=== PATIENT | male | born 1990 | race Caucasian/White ===

== ENCOUNTER 2021-11-09 11:55 | Emergency (ER) | payer MEDICAID ==
[~2021-11-09] VITALS: Ht 182.9 cm; Wt 81.8 kg
[2021-11-09 12:17] VITALS: BP 121/94
[2021-11-09] MEDS ORDERED: TETanus/Pertussis (Acell)/Diphther VAC/PF (Tdap-Adult) 0.5ml syringe IMVAC ONE (12:30)
== END 2021-11-09 13:23 | disposition left against medical advice (07) ==
LOC: ER 11:57
DX: S91.301A Unspecified open wound, right foot, initial encounter (principal); S61.401A Unspecified open wound of right hand, initial encounter; Z72.89 Other problems related to lifestyle; X58.XXXA Exposure to other specified factors, initial encounter; Y93.89 Activity, other specified; Y92.89 Other specified places as the place of occurrence of the external cause; Y99.8 Other external cause status
CPT/HCPCS: 73620; 99283

== ENCOUNTER 2024-04-13 05:33 | Emergency (ER) | payer MEDICAID ==
[~2024-04-13] VITALS: Ht 185.4 cm; Wt 80.2 kg
[2024-04-13 05:36] VITALS: TEMP 97.7
[2024-04-13 06:53] VITALS: BP 116/79; PULSE 97; RESP 18; O2SAT 100
[2024-04-13 07:40] LABS: ALBUMIN 3.1 G/DL (3.4-5.0); ANION GAP 7 (8-16); BLOOD UREA NITROGEN 11 MG/DL (7-18); BUN/CREATININE RATIO 12.5 (10.0-20.0); CALCIUM 8.4 MG/DL (8.5-10.1); CHLORIDE 105 MMOL/L (99-107); CREATININE 0.88 MG/DL (0.60-1.10); GLUCOSE 77 MG/DL (70-104); POTASSIUM 4.2 MMOL/L (3.5-5.1); SODIUM 139 MMOL/L (135-145); TOTAL CARBON DIOXIDE 27.1 MMOL/L (24-32); eCRCL 132 ML/MIN; eGFR > 90 ML/MIN
[2024-04-13 08:09] LABS: BASOPHILS % (AUTO) 0.3 % (0-1); EOSINOPHILS # (AUTO) 0.4 X10'3 (0-0.9); EOSINOPHILS % (AUTO) 5.6 % (0-6); HEMATOCRIT 39.8 % (42.0-52.0); HEMOGLOBIN 13.3 g/dl (14.0-17.9); LYMPHOCYTES # (AUTO) 1.6 X10'3 (1.1-4.8); LYMPHOCYTES % (AUTO) 20.6 % (21-51); MEAN CORPUSCULAR HEMOGLOBIN 29.3 PG (27.0-31.0); MEAN CORPUSCULAR HGB CONC 33.5 g/dL (33.0-36.5); MEAN CORPUSCULAR VOLUME 87.5 FL (78-98); MEAN PLATELET VOLUME 8.6 FL (7.4-10.4); MONOCYTES % (AUTO) 12.8 % (2-12); NEUTROPHILS # (AUTO) 4.6 X10'3 (1.8-7.7); NEUTROPHILS % (AUTO) 60.7 % (42-75); PLATELET COUNT 185 X10'3 (140-440); RED BLOOD COUNT 4.55 X10'6 (4.70-6.10); RED CELL DISTRIBUTION WIDTH 14.3 % (11.5-14.5); WHITE BLOOD COUNT 7.6 X10'3 (4.5-11.0)
[2024-04-13 09:12] LABS: PRO BRAIN NATRIURETIC PEPTIDE 42 PG/ML (0-125)
[2024-04-13] MEDS ORDERED: LITH300C PO (09:12)
[2024-04-13] MEDS: VANCOMYCIN 1,500MG inj. 1,500 MG in normal saline 500ml IV soln 300 ML IV ONE (09:22)
[2024-04-13] MEDS: DOXYCYCLINE 100MG CAPSULE PO ONE (09:23)
[2024-04-13] MEDS: rifampin 300mg capsule PO ONE (09:23)
== END 2024-04-13 09:27 | disposition left against medical advice (07) ==
LOC: ER 05:33
DX: L73.9 Follicular disorder, unspecified (principal); L03.116 Cellulitis of left lower limb; F17.200 Nicotine dependence, unspecified, uncomplicated; F12.90 Cannabis use, unspecified, uncomplicated; F15.90 Other stimulant use, unspecified, uncomplicated; Z79.899 Other long term (current) drug therapy
CPT/HCPCS: 36415; 80048; 83605; 83880; 85025; 87040; 87081; 99283

== ENCOUNTER 2024-07-08 03:17 | Emergency (ER) | payer MEDICAID ==
[~2024-07-08] VITALS: Ht 185.4 cm; Wt 93.0 kg
[~2024-07-08 03:17] MED LIST: LITH300C PO
[2024-07-08 03:23] VITALS: TEMP 98.1
[2024-07-08] MEDS ORDERED: ACET-2006 PO (04:17)
[2024-07-08] MEDS ORDERED: IBUP-24 PO (04:17)
[2024-07-08] MEDS ORDERED: PENI500T2 PO (04:20)
[2024-07-08] MEDS ORDERED: BENZ9.352 TOP (04:20)
[2024-07-08] MEDS: ibuprofen tablet 400 MG TABLET PO ONE (04:28)
[2024-07-08] MEDS: acetaminophen 325mg tablet PO ONE (04:29)
[2024-07-08] MEDS: LIDOcaine 2% Viscous 15ml cup MM ONE (04:29)
[2024-07-08] MEDS: penicillin V potassium 500mg tablet PO ONE (04:31)
[2024-07-08 05:13] VITALS: BP 132/95; PULSE 91; RESP 16; O2SAT 98
== END 2024-07-08 05:21 | disposition home or self-care (01) ==
LOC: ER 03:17
DX: K02.9 Dental caries, unspecified (principal); F12.90 Cannabis use, unspecified, uncomplicated; F15.90 Other stimulant use, unspecified, uncomplicated
CPT/HCPCS: 99284